=== PATIENT | male | born 1990 | race Two or more races ===

== ENCOUNTER 2016-08-09 12:52 | Emergency (ER) | payer MEDICAID ==
[~2016-08-09] VITALS: Ht 182.9 cm; Wt 77.1 kg
[2016-08-09] VITALS (10 sets, daily range): BP systolic 128–160; BP diastolic 80–92
[2016-08-09] MEDS ORDERED: HYDROmorphone 1mg/ml Carpuject IVP ONE (13:15)
[2016-08-09 13:41] LABS: EOSINOPHILS % (AUTO) 3.9 % (0.0-3.0); LYMPHOCYTES % (AUTO) 28.7 % (20.0-45.0); MEAN CORPUSCULAR HEMOGLOBIN 28.5 PG (27.0-31.0); MEAN CORPUSCULAR VOLUME 86 FL (80-99); MEAN PLATELET VOLUME 7.4 FL (6.5-10.1); MONOCYTES % (AUTO) 6.1 % (1.0-10.0); NEUTROPHILS % (AUTO) 60.4 % (45.0-75.0); PLATELET COUNT 253 K/UL (150-450); RED BLOOD COUNT 5.32 M/UL (4.70-6.10); RED CELL DISTRIBUTION WIDTH 12.2 % (11.6-14.8); WHITE BLOOD COUNT 8.3 K/UL (4.8-10.8)
[2016-08-09 14:03] LABS: ALANINE AMINOTRANSFERASE 51 U/L (3-41); ALBUMIN/GLOBULIN RATIO 1.8 (1.0-2.7); ANION GAP 17 (5-15); ASPARTATE AMINO TRANSFERASE 25 U/L (5-40); CALCIUM 9.4 mg/dL (8.6-10.2); CARBON DIOXIDE 21 mEQ/L (20-30); CHLORIDE 101 mEQ/L (98-107); CREATININE 1.2 mg/dL (0.7-1.2); GLOMERULAR FILTRATION RATE > 60 mL/min (>60); HEMOLYSIS 25; POTASSIUM 4.5 mEQ/L (3.4-4.9); SODIUM 139 mEQ/L (135-145); TOTAL PROTEIN 6.9 g/dL (6.6-8.7)
[2016-08-09] MEDS ORDERED: Propofol 10mg/ml 20ml IV ONE (14:15)
--- NOTE | 2016-08-09 15:01 | Diagnostic Imaging Report ---
Indication: Pain Comparison: None Findings: 2 views of the right ankle obtained. There is complete disarticulation of the tibiotalar joint posteriorly. The talus is posteriorly and laterally displaced relative to the tibia. There is a fracture of the distal fibula. There is also small bone fragment posteriorly probably from fracture of the posterior tibia or posterior malleolus. Impression: Acute fracture or dislocation
[2016-08-09] MEDS ORDERED: IBUPROFEN600 MG ORAL (15:51)
[2016-08-09] MEDS ORDERED: NORCO 5-325 TA1 EACH ORAL (15:51)
--- NOTE | 2016-08-10 08:33 | Diagnostic Imaging Report ---
Indication: Pain Comparison: Earlier today Findings: 2 views of the right ankle obtained. After closed reduction, the tibiotalar joint appears in much better alignment. Lower fibula fracture again noted. Impression: Improved alignment
--- NOTE | 2016-08-10 08:38 | Diagnostic Imaging Report ---
Indication: Pain Comparison: None Findings: 2 views of the right foot were obtained. There is disarticulation of the tibiotalar joint posteriorly. There is a fracture of the distal fibula. Impression: Fracture dislocation at the ankle
--- NOTE | 2016-08-10 15:16 | Emergency Room Report ---
History of Present Illness General Chief Complaint: Lower Extremity Injury Source: Patient Present Illness HPI 25-year-old male presents ED complaining of pain and deformity to the right ankle. Patient states he was skateboarding today when he hit a bump in his right leg the ground. Patient notes deformity to the right ankle. EMS gave patient IV morphine. Patient states pain is 10 out of 10, throbbing, nonradiating. Unable to walk. Denies any other injuries. No other aggravating or relieving factors. Denies any other associated symptoms Allergies: Coded Allergies: No Known Allergies (Unverified , 08/09/16) Patient History Past Medical History: none Past Surgical History: none Pertinent Family History: none Social History: Denies: alcohol use, drug use, smoking Immunizations: UTD Reviewed Nursing Documentation: PMH: Agreed, PSxH: Agreed Nursing Documentation-PMH Past Medical History: No Stated History Review of Systems All Other Systems: negative except mentioned in HPI Physical Exam Vital Signs Date Time Temp Pulse Resp B/P Pulse Ox O2 Delivery O2 Flow Rate FiO2 08/09/16 12:40 97.5 78 16 128/82 98 Room Air 08/09/16 14:49 10.0 Sp02 EP Interpretation: reviewed, normal General Appearance: no apparent distress, alert, GCS 15, non-toxic Head: normocephalic, atraumatic Eyes: bilateral eye PERRL, bilateral eye normal inspection ENT: normal ENT inspection Neck: normal inspection Respiratory: normal inspection Cardiovascular #1: normal inspection Gastrointestinal: normal inspection Rectal: deferred Genitourinary: no CVA tenderness Musculoskeletal: other - deformity to R ankle, R foot displaced outward Neurologic: alert, oriented x3, responsive, motor strength/tone normal, sensory intact, speech normal Psychiatric: normal inspection Skin: other - ecchmyoses over R foot Lymphatic: normal inspection Procedures Splinting Splinting : Consent: Verbal Hand-Made Type: plaster Splint: poserior short Pre-Proc Neuro Vasc Exam: normal Post-Proc Neuro Vasc Exam: normal Patient Tolerated: Well Complications: None Joint Reduction Joint Reduction : Consent: Written Joint Reduction Site: other - R ankle Procedural Sedation: Yes Reduction Attempts: One Pre-Procedure NV Exam: Yes Post-Procedure NV Exam: Yes Post Joint Reduction Film: joint reduced Patient Tolerated: Well Complications: None Procedural Sedation Consent: Written Pre-Sedation Assessment: Eval. Immed. Prior to Sed, Pre-proc Edu. done, Plan for Sedation Discuss Airway Assessment (Malampati): I Heart: normal Lungs: normal Abdomen: normal Extremities: normal Procedures/Plans: Closed Reduction Plan for Moderate Sedation: Propofol ASA Score: I Start Time: 14:49 End Time: 14:55 Total Time: 0005 Communication: No Apparent Limitation Mental Status: Awake Respiration: Unlabored Skin Condition: WNL Abdomen: WNL Nausea: NO Vomiting: NO Medical Decision Making Diagnostic Impression: Primary Impression: Fibula fracture Qualified Codes: S82.831A - Other fracture of upper and lower end of right fibula, initial encounter for closed fracture Additional Impression: Ankle dislocation Qualified Codes: S93.04XA - Dislocation of right ankle joint, initial encounter ER Course Hospital Course 25-year-old M presents to ED complaining of R ankle pain/deformity s/p trip and fall Differential diagnoses include: Fracture, dislocation, sprain, contusion Clinical course Patient placed on stretcher. After initial history and physical, I ordered IV pain medications and Xrays of R ankle/foot X-ray shows disarticulation of the tibial talar joint posteriorly. Distal fibular fracture Using procedural sedation, we were able to reduce the joint without difficulty. Posterior splint placed. Repeat x-ray show improved alignment Discussed findings with the patient. Recommend followup with orthopedics, nonweightbearing Diagnosis - distal fibula fx, ankle dislocation Stable and discharged to home with prescription for Motrin, [place]. apply ice, keep elevated. weight bear as tolerated. Followup with PMD/ortho. Return to ED if symptoms recur or worsen Labs Test 08/09/16 13:13 White Blood Count 8.3 K/UL (4.8-10.8) Red Blood Count 5.32 M/UL (4.70-6.10) Hemoglobin 15.2 G/DL (14.2-18.0) Hematocrit 46.0 % (42.0-52.0) Mean Corpuscular Volume 86 FL (80-99) Mean Corpuscular Hemoglobin 28.5 PG (27.0-31.0) Mean Corpuscular Hemoglobin Concent 33.0 G/DL (32.0-36.0) Red Cell Distribution Width 12.2 % (11.6-14.8) Platelet Count 253 K/UL (150-450) Mean Platelet Volume 7.4 FL (6.5-10.1) Neutrophils (%) (Auto) 60.4 % (45.0-75.0) Lymphocytes (%) (Auto) 28.7 % (20.0-45.0) Monocytes (%) (Auto) 6.1 % (1.0-10.0) Eosinophils (%) (Auto) 3.9 % (0.0-3.0) Basophils (%) (Auto) 1.0 % (0.0-2.0) Prothrombin Time 10.0 SEC (9.30-11.50) Prothromb Time International Ratio 1.0 (0.9-1.1) Activated Partial Thromboplast Time 27 SEC (23-33) Sodium Level 139 mEQ/L (135-145) Potassium Level 4.5 mEQ/L (3.4-4.9) Chloride Level 101 mEQ/L (98-107) Carbon Dioxide Level 21 mEQ/L (20-30) Anion Gap 17 (5-15) Blood Urea Nitrogen 8 mg/dL (7-23) Creatinine 1.2 mg/dL (0.7-1.2) Estimat Glomerular Filtration Rate > 60 mL/min (>60) Glucose Level 113 mg/dL (74-106) Calcium Level 9.4 mg/dL (8.6-10.2) Total Bilirubin 0.9 mg/dL (0.0-1.2) Aspartate Amino Transf (AST/SGOT) 25 U/L (5-40) Alanine Aminotransferase (ALT/SGPT) 51 U/L (3-41) Alkaline Phosphatase 68 U/L (40-129) Total Protein 6.9 g/dL (6.6-8.7) Albumin 4.5 g/dL (3.5-5.2) Globulin 2.4 g/dL Albumin/Globulin Ratio 1.8 (1.0-2.7) Other X-Ray Diagnostic Results Other X-Ray Diagnostic Results : X-Ray Ordered: R ankle, R foot EP Interpretation: No Findings: other Number of Views: 3 Other Impression Right ankle-complete disarticulation of the tibiotalar joint exteriorly. Talus is posterior and laterally displaced to the tibia. Fracture of the distal fibula Right foot-fracture dislocation of the ankle, soft tissue swelling noted Last Vital Signs Date Time Temp Pulse Resp B/P Pulse Ox O2 Delivery O2 Flow Rate FiO2 08/09/16 16:05 98.0 77 16 128/87 97 Room Air 10.0 Status: improved Disposition: HOME, SELF-CARE Condition: Stable Scripts Hydrocodone Bit/Acetaminophen 5-325* (NORCO 5-325*) 1 Each Tablet 1 TAB ORAL Q6H Y for For Pain, #20 TAB 0 Refills Prov: AURA MONTESINOS M.D. 08/09/16 Ibuprofen* (MOTRIN*) 600 Mg Tablet 600 MG ORAL Q8H Y for For Pain, #30 TAB 0 Refills Prov: AURA MONTESINOS M.D. 08/09/16 Referrals: ZAINAB REYES PHYSICIAN (PCP) Patient Instructions: Ankle Dislocation, [id number] UARA MONTESINOS M.D. Aug 10, 2016 15:16
== END 2016-08-09 16:16 | disposition home or self-care (01) ==
LOC: EDBD 12:52 → EMR 13:42
DX: S82.831A Other fracture of upper and lower end of right fibula, initial encounter for closed fracture (principal); S93.04XA Dislocation of right ankle joint, initial encounter; V00.131A Fall from skateboard, initial encounter; Y92.9 Unspecified place or not applicable
CPT/HCPCS: 27788; 29515; 36415; 73600; 73620; 80053; 85025; 85610; 85730; 99285; J1170; J2704; Z7502